=== PATIENT | female | born 1935 | race African-American/Black ===

== ENCOUNTER → 2016-10-25 | Outpatient (CLI) | payer MEDICARE ==
[2015-07-01 10:37] VITALS: BP 153/42
[~2016-10-25] MED LIST: AMLO5TAB2 PO; ASPI325T8 PO; CITA20TA9 PO; CLOP75TA57 PO; ERGO50002 PO; HYDR25TA PO; METO25TA4 PO; NEO/5DRO OU; PIOG30TA41 PO
== END | disposition home or self-care (01) ==
LOC: NM 13:26
PROVIDERS: ATTEND Family Medicine
DX: E11.65 Type 2 diabetes mellitus with hyperglycemia (principal); N39.0 Urinary tract infection, site not specified; R25.2 Cramp and spasm; D50.8 Other iron deficiency anemias; R79.1 Abnormal coagulation profile

== ENCOUNTER → 2016-12-22 | Day surgery (SDC) | payer MEDICARE ==
[2015-07-01 10:37] VITALS: BP 153/42
[~2016-12-22] MED LIST changes: +IV RINGERS SOLUTION,LACTATED 1,000 ML IV ONE; +LIDOCAINE 2% PF Vial for OR 5 ML VIAL. ONE; +PROPOFOL 40 ML IV ONE
== END | disposition home or self-care (01) ==
LOC: SURG 07:05
PROVIDERS: ATTEND Internal Medicine Gastroenterology
DX: D50.9 Iron deficiency anemia, unspecified (principal); K64.8 Other hemorrhoids; K57.30 Diverticulosis of large intestine without perforation or abscess without bleeding; K29.70 Gastritis, unspecified, without bleeding; K44.9 Diaphragmatic hernia without obstruction or gangrene
CPT/HCPCS: 43239; 45378; 82947; J2704; J7120; J2001

== ENCOUNTER → 2017-09-13 | Outpatient (CLI) | payer MEDICARE ==
[2015-07-01 10:37] VITALS: BP 153/42
[~2017-09-13] MED LIST changes: -IV RINGERS SOLUTION,LACTATED 1,000 ML IV ONE; -LIDOCAINE 2% PF Vial for OR 5 ML VIAL. ONE; -PROPOFOL 40 ML IV ONE
--- NOTE | 2017-09-13 12:31 | RAD ---
INDICATION: Claudication. TECHNIQUE: Grayscale, color-flow, and spectral waveform analysis was performed. Comparison is from June 10, 2014. FINDINGS: Right: There is an elevated velocity in the superficial femoral artery, mid to distally 525 cm/s. Waveforms are probably monophasic just above and below this level. No additional elevated velocity is identified. There is mild atheromatous plaquing throughout. Right common femoral artery peak systolic velocity is 177 cm/s and profundus 146 cm/s. Right popliteal artery peak systolic velocity is 42 cm/s. Left: Waveforms are biphasic throughout. There is mild atheromatous plaquing. There is no elevated velocity. Stenosis and collaterals noted previously on the left in the superficial femoral artery distally are no longer appreciated. Correlate with any intervention since prior exam. Left common femoral artery peak systolic velocity is 159 cm/s and profundus 166 cm/s. Left superficial femoral artery peak systolic velocities ranged from 50-120 cm/s. Popliteal artery peak systolic velocity is 57 cm/s. IMPRESSION: 1. Redemonstrated elevated velocity in the mid to distal right superficial femoral artery suggesting high-grade stenosis. 2. No significant stenosis apparent on the left. Narrowing and collaterals noted previously on the left are not appreciated on the current exam. Electronically signed by: Ted Green MD (09/13/2017 12:28 PM) [facility]
== END | disposition home or self-care (01) ==
LOC: US 09:28
PROVIDERS: ATTEND Family Medicine
DX: I70.293 Other atherosclerosis of native arteries of extremities, bilateral legs (principal); I10 Essential (primary) hypertension; E11.65 Type 2 diabetes mellitus with hyperglycemia; D50.9 Iron deficiency anemia, unspecified
CPT/HCPCS: 93925

== ENCOUNTER 2018-10-30 09:07 | Emergency (ER) | payer MEDICARE ==
[~2018-10-30] VITALS: Ht 152.4 cm; Wt 64.9 kg
[~2018-10-30 09:07] MED LIST changes: +AMLO5TAB10 PO; -AMLO5TAB2 PO
[2018-10-30] MEDS ORDERED: ACETAMINOPHEN 500 MG TABLET PO ONE (10:00)
--- NOTE | 2018-10-30 10:30 | RAD ---
Examination: CT head and cervical spine without contrast CT HEAD INDICATION: Fall, hit head COMPARISON: None Available. Exposure: One or more of the following individualized dose reduction techniques were utilized for this examination: 1. Automated exposure control 2. Adjustment of the mA and/or kV according to patient size 3. Use of iterative reconstruction technique TECHNIQUE: 5 mm contiguous axial images were obtained from the skull base to the vertex in both bone and soft tissue algorithm. FINDINGS: Mild Age-related cerebral atrophic changes. There is a small hypodensity identified in the left basal ganglia likely old lacunar infarct. No evidence of acute intracranial hemorrhage. No extra-axial fluid collections. No mass effect or midline shift. Ventricular size is appropriate. Basal cisterns are patent. No fractures identified.Torrez-white differentiation is preserved.Globes and orbits are within normal limits. Paranasal sinuses and mastoid air cells are clear. IMPRESSION: No acute intracranial findings. CT CERVICAL SPINE INDICATION: Fall, neck pain COMPARISON: None Available. Technique: 2.5 mm contiguous axial images were obtained from the skull base through the cervicothoracic junction in both bone and soft tissue algorithm. Additional sagittal and coronal reconstructions were also performed. FINDINGS: There is questionable minimal offset with questionable widening of the right C1-C2 articulation. 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 The vertebral body heights are maintained. The bilateral facets are well aligned. Moderate intervertebral disc height loss identified at C2-C3, C3-C4, C4-C5, C5-C6 and C6-C7 vertebral levels. Diffuse disc bulges identified throughout the cervical spine particularly at C3-C4 and C5-C6 vertebral level causing anterior thecal sac impression. No obvious acute fracture is evident. IMPRESSION: 1. Questionable minimal offset with widening of the right C1-C2 articulation. Rotary subluxation is not excluded. Recommend MRI for further evaluation. 2. Multilevel degenerative changes cervical spine. Electronically signed by: Douglas Andrews MD (10/30/2018 10:27 AM) [facility]
--- NOTE | 2018-10-30 11:03 | ED.ADGEN ---
Past History Past Medical History: Diabetes, Hypertension, [place] Past Surgical History: Other Alcohol Use: None Drug Use: None Adult General Chief Complaint Chief Complaint Patient is a 83-year-old female who presents with neck pain and headache after falling backwards while sitting in a chair 2 days ago. Patient states she lost balance and hit her head on the ground. She is currently on Plavix. Patient denies loss of consciousness. She initially reports headache which has since resolved, but does have persistent diffuse right posterior neck pain. Pain radiates to right shoulder and arm. Denies extremity weakness or loss of sensation. Denies chest pain back pain or any other injury or pain related complaint. No other acute symptoms. Patient drove by private vehicle to the ED. She has not sought medical evaluation or treatment for her neck pain prior to today's visit.Patient is a 83-year-old female who presents with neck pain and headache after falling backwards while sitting in a chair 2 days ago. Patient states she lost balance and hit her head on the ground. She is currently on Plavix. Patient denies loss of consciousness. She initially reports headache which has since resolved, but does have persistent diffuse right posterior neck pain. Pain radiates to right shoulder and arm. Denies extremity weakness or loss of sensation. Denies chest pain back pain or any other injury or pain related complaint. No other acute symptoms. Patient drove by private vehicle to the ED. She has not sought medical evaluation or treatment for her neck pain prior to today's visit. HPI HPI [] Review of Systems Review of Systems Review symptoms as per history of present illness. All other review symptoms are negative. All other systems were reviewed and found to be within normal limits, except as documented in this note. Current Medications Current Medications Current Medications Medications (Trade) Dose Ordered Sig/[facility] Start Time Stop Time Status Last Admin Dose Admin Acetaminophen (Tylenol) 1,000 mg 1X ONCE 10/30/18 10:00 10/30/18 10:01 DC 10/30/18 09:58 1,000 MG Allergies Allergies Allergies Coded Allergies Type Severity Reaction Last Updated Verified No Known Drug Allergies 10/30/18 No Physical Exam Physical Exam Constitutional: Well developed, well nourished, no acute distress, non-toxic appearance. [] HENT: Normocephalic, atraumatic, bilateral external ears normal, oropharynx moist, no oral exudates, nose normal. [] Eyes: PERRLA, EOMI, conjunctiva normal, no discharge. [] Neck: Normal range of motion, diffuse posterior neck pain, tenderness. No midline tenderness.. [] Cardiovascular:Heart rate regular rhythm, no murmur [] Lungs & Thorax: Bilateral breath sounds clear to auscultation [] Abdomen: Bowel sounds normal, soft, no tenderness. [] Neurologic: Alert and oriented X 3, normal motor function, normal sensory function, no focal deficits noted. [] Psychologic: Affect normal, judgement normal, mood normal. [] Current Patient Data Vital Signs Vital Signs Date Time Temp Pulse Resp B/P (MAP) Pulse Ox O2 Delivery O2 Flow Rate FiO2 10/30/18 09:12 98.2 76 16 99 Room Air EKG EKG [] Radiology/Procedures Radiology/Procedures [CT head/cervical spine: Findings suspicious of ligamentous injury per radiology report. Recommendations are for MRI.] Course & Med Decision Making Course & Med Decision Making Pertinent Labs and Imaging studies reviewed. (See chart for details) [Patient placed in soft collar. Dr. Kramer sales and service consultant for neurosurgery to see for surgical consult. Patient will be transferred to [facility] to obtain an MRI. Dr. Guevara to admit] Final Impression Final Impression [1. Traumatic neck pain 2. Cervical radiculopathy 3, abnormal CT cervical spine] Dragon Disclaimer Dragon Disclaimer This electronic medical record was generated, in whole or in part, using a voice recognition dictation system. JOSE JOHNSON DO Oct 30, 2018 11:03
[2018-10-30 12:11] LABS: BASO % 1 % (0-3); EOS % 1 % (0-3); HEMATOCRIT 21.6 % (36.0-47.0); LYMPH # 1.8 x10^3/uL (1.0-4.8); LYMPH % 39 % (24-48); MEAN CORPUSCULAR HEMOGLOBIN 17 pg (25-35); MEAN CORPUSCULAR HGB CONC 29 g/dL (31-37); MEAN CORPUSCULAR VOLUME 58 fL (79-100); MONO # 0.7 x10^3/uL (0.0-1.1); MONO % 14 % (0-9); NEUT # 2.1 x10^3uL (1.8-7.7); NEUT % 45 % (31-73); PLATELET COUNT 297 x10^3/uL (140-400); RED BLOOD COUNT 3.72 x10^6/uL (3.50-5.40); RED CELL DISTRIBUTION WIDTH 20.9 % (11.5-14.5); WHITE BLOOD COUNT 4.7 x10^3/uL (4.0-11.0)
[2018-10-30 12:13] LABS: HEMOGLOBIN 6.2 g/dL (12.0-15.5)
[2018-10-30 12:20] LABS: ALBUMIN 3.5 g/dL (3.4-5.0); ALBUMIN/GLOBULIN RATIO 0.9 (1.0-1.7); CALCIUM 8.7 mg/dL (8.5-10.1); CREATININE 0.8 mg/dL (0.6-1.0); GFR 83.3; TOTAL BILIRUBIN 0.4 mg/dL (0.2-1.0); TOTAL PROTEIN 7.5 g/dL (6.4-8.2)
[2018-10-30] MEDS ORDERED: IV NORMAL SALINE 1,000ML 1,000 ML IV ONE (12:30)
[2018-10-30] MEDS ORDERED: FAMOTIDINE 20 MG/2 ML VIAL IVP ONE (12:45)
[2018-10-30 12:53] LABS: % BANDS 1 % (0-9); % BASOS 0 % (0-3); % EOS 1 % (0-5); % LYMPHS 43 % (24-48); % MONOS 6 % (0-10); % SEGS 49 % (35-66); PLT ESTIMATE ADEQUATE (ADEQUATE)
[2018-10-30 12:54] LABS: ANISOCYTOSIS MOD; HYPOCHROMIA MARKED; MICROCYTOSIS MOD; OVALOCYTES OCC; POLYCHROMASIA PRESENT; TARGET CELLS OCC; TEAR DROP CELLS PRESENT
[2018-10-30 13:05] LABS: FECAL OB PT NEGATIVE (NEG)
[2018-10-30 13:45] VITALS: BP 156/80
== END 2018-10-30 14:45 | disposition short-term general hospital (02) ==
LOC: ER 09:07
DX: M54.2 Cervicalgia (principal); M54.12 Radiculopathy, cervical region; R93.89 Abnormal findings on diagnostic imaging of other specified body structures; R42 Dizziness and giddiness; E11.9 Type 2 diabetes mellitus without complications; I10 Essential (primary) hypertension; I25.2 Old myocardial infarction
CPT/HCPCS: 36415; 70450; 72125; 80053; 82274; 85007; 85025; 85610; 85730; 96360; 96361; 99285-25; J7030

== ENCOUNTER → 2019-05-02 | Outpatient (CLI) | payer MEDICARE ==
[2019-05-02 11:52] LABS: BASO # 0.1 x10^3/uL (0.0-0.2); BASO % 1 % (0-3); EOS # 0.1 x10^3/uL (0.0-0.7); EOS % 2 % (0-3); HEMATOCRIT 41.7 % (36.0-47.0); HEMOGLOBIN 13.4 g/dL (12.0-15.5); LYMPH # 1.2 x10^3/uL (1.0-4.8); LYMPH % 26 % (24-48); MEAN CORPUSCULAR HEMOGLOBIN 28 pg (25-35); MEAN CORPUSCULAR HGB CONC 32 g/dL (31-37); MEAN CORPUSCULAR VOLUME 86 fL (79-100); MONO # 0.6 x10^3/uL (0.0-1.1); MONO % 13 % (0-9); NEUT # 2.7 x10^3uL (1.8-7.7); NEUT % 57 % (31-73); PLATELET COUNT 182 x10^3/uL (140-400); RED BLOOD COUNT 4.85 x10^6/uL (3.50-5.40); RED CELL DISTRIBUTION WIDTH 15.5 % (11.5-14.5); WHITE BLOOD COUNT 4.7 x10^3/uL (4.0-11.0)
[2019-05-02 11:58] LABS: ALBUMIN 3.5 g/dL (3.4-5.0); ALBUMIN/GLOBULIN RATIO 0.9 (1.0-1.7); CALCIUM 8.9 mg/dL (8.5-10.1); CREATININE 0.7 mg/dL (0.6-1.0); GFR 97.2; POTASSIUM 3.8 mmol/L (3.5-5.1); TOTAL BILIRUBIN 0.2 mg/dL (0.2-1.0); TOTAL PROTEIN 7.4 g/dL (6.4-8.2)
== END | disposition home or self-care (01) ==
LOC: LAB 10:17
PROVIDERS: ATTEND Family Medicine
DX: D50.9 Iron deficiency anemia, unspecified (principal)
CPT/HCPCS: 36415; 80053; 83540; 83550; 85025

== ENCOUNTER → 2019-11-01 | Outpatient (CLI) | payer MEDICARE ==
--- NOTE | 2019-11-05 09:36 | RAD ---
DATE: 11/01/2019 8:53 AM EXAM: MAMMO HERMAN SCREENING BILATERAL HISTORY: Screening . New baseline. COMPARISON: None available. This will serve as a new baseline. Bilateral CC and MLO views of the breasts were performed. Bilateral breast tomosynthesis was performed in CC and MLO projections. This study was interpreted with the benefit of Computerized Aided Detection (CAD). FINDINGS: Breast Density: HETERO The breast parenchyma Is heterogeneously dense, which could reduce sensitivity of mammography. Breast parenchyma level C No suspicious masses, microcalcifications or architectural distortion is present to suggest malignancy in either breast. The visualized axillae are unremarkable. IMPRESSION: No mammographic evidence of malignancy. BI-RADS CATEGORY: 1 NEGATIVE RECOMMENDED FOLLOW-UP: 12M 12 MONTH FOLLOW-UP Annual screening mammography is recommended, unless clinically indicated sooner based on symptoms or change in physical exam. PQRS compliance statement: Patient information was entered into a reminder system with a target due date for the next mammogram. Mammography is a sensitive method for finding small breast cancers, but it does not detect them all and is not a substitute for careful clinical examination. A negative mammogram does not negate a clinically suspicious finding and should not result in delay in biopsying a clinically suspicious abnormality. "Our facility is accredited by the [employer] Mammography Program."
== END | disposition home or self-care (01) ==
LOC: MAMMO 08:38
PROVIDERS: ATTEND Family Medicine
DX: Z12.31 Encounter for screening mammogram for malignant neoplasm of breast (principal)
CPT/HCPCS: 77063; 77067

== ENCOUNTER 2020-05-29 22:59 | Emergency (ER) | payer MEDICARE ==
[~2020-05-29] VITALS: Ht 152.4 cm; Wt 68.2 kg
[~2020-05-29 22:59] MED LIST changes: +AMLO-186 PO; -AMLO5TAB10 PO
[2020-05-29 23:17] VITALS: BP 162/84
--- NOTE | 2020-05-29 23:20 | PHYS DOC ---
Past History Past Medical History: Arthritis, Diabetes, Hypertension, [place], UTI Past Medical History Radial fx Lt. Past Surgical History: Other Alcohol Use: None Drug Use: None General Adult EDM: Chief Complaint: BACK PAIN OR INJURY HPI: HPI: " I been tiny feeling bad since yesterday... started hurting tonight.. here on Lt... " Patient is a 84 year old female who presents with above hx with complaints malaise, dysuria, and now left flank pain. Patient also complaining of continued pain in left wrist since a fall last month. Has a very swollen wrist.. Told for the wear a splint but has not been wearing it because of the jewelry gave her... 20 years go.. Patient denies any recent travel. No specific ill contacts. No history immunosuppression. Has had urinary tract infections before. Has had renal stones previously. Wrist area on the left is still swollen hand on the left is still swollen. Jewelry removed with soap and water. Distal neurovascular appears to be intact. Capillary refill is equal to right hand. Patient is right-hand dominant. Localized pain to the distal radius. Patient normally follows with Dr. Spencer. Review of Systems: Review of Systems: Constitutional: Denies fever or chills. Complains of malaise Eyes: Denies change in visual acuity HENT: Denies nasal congestion or sore throat Respiratory: Denies cough or shortness of breath Cardiovascular: Denies chest pain or edema GI: Denies abdominal pain, nausea, vomiting, bloody stools or diarrhea : Complains of dysuria Musculoskeletal: Denies back pain or joint pain. Complains left wrist pain injured over a month ago Integument: Denies rash Neurologic: Denies headache, focal weakness or sensory changes Endocrine: Denies polyuria or polydipsia Lymphatic: Denies swollen glands Psychiatric: Denies depression or anxiety Family History: Family History: Noncontributory to presentation Current Medications: Current Meds: See nursing for home meds Allergies: Allergies: Allergies Coded Allergies Type Severity Reaction Last Updated Verified No Known Drug Allergies 10/30/18 No Physical Exam: PE: Constitutional: Moderate acute distress, non-toxic appearance. [] HENT: Normocephalic, atraumatic, bilateral external ears normal, oropharynx moist, no oral exudates, nose normal. [] Eyes: PERRLA, EOMI, conjunctiva normal, no discharge. [] Neck: Normal range of motion, no tenderness, supple, no stridor. [] Cardiovascular:Heart rate regular rhythm, no murmur [] Lungs & Thorax: Bilateral breath sounds equal at apex auscultation [] Abdomen: Bowel sounds normal, soft, generalized tenderness, no masses, no pulsatile masses. [Distended. Skin: Warm, dry, no erythema, no rash. [] Back: No tenderness, no CVA tenderness. [] Extremities: No tenderness, no cyanosis, no clubbing, ROM intact, no edema. [] Neurologic: Alert and oriented X 3, normal motor function, normal sensory function, no focal deficits noted. [] Psychologic: Affect normal, judgement normal, mood normal. [] EKG: EKG: My interpretation EKG shows sinus bradycardia at 68 bpm. No findings acute STEMI of contralateral changes [] Radiology/Procedures: Radiology/Procedures: [[place] [address] IMAGING REPORT Signed PATIENT: JOVANNI SANCHES MACCOUNT: [id number] : 1935 LOCATION: ER AGE: 84 SEX: F EXAM STATUS: REG ER ORD. PHYSICIAN: KEATON CHAIREZ MD REASON: pain PROCEDURE: ACUTE ABDOMEN SERIES ACUTE ABDOMEN SERIES History: Pain. Comparison: None. Findings: Frontal chest and supine and upright views of the abdomen. Atherosclerotic aortic arch. Cardiomediastinal silhouette is normal. There is no pleural effusion or pneumothorax. The lungs are clear. No pneumoperitoneum is identified. No dilated air-filled loops of bowel are seen. Bowel gas pattern is nonobstructive. No obvious organomegaly. Degenerative endplate spurring of the lumbar spine. Scattered stool in the colon. Arterial calcifications are seen. There is a 12 mm right renal calculus. IMPRESSION: 1. No acute cardiopulmonary process. 2. Nonobstructive bowel gas pattern. 3. Large right renal calculus. Electronically signed by: Ken Parker MD (05/30/2020 1:06 AM) [facility] DICTATED AND SIGNED BY: KEN PARKER MD DATE: 05/30/20103 CC: TAMIKO SPENCER MD; KEATON CHAIREZ MD ~MTH0 [address] [address] IMAGING REPORT Signed PATIENT: JOVANNI SANCHESCOUNT: [id number] : 1935 LOCATION: ER AGE: 84 SEX: F EXAM STATUS: REG ER ORD. PHYSICIAN: KEATON CHAIREZ MD REASON: fall , still swollen PROCEDURE: WRIST 3V LEFT XR LT WRIST 3VIEWS, XR FOREARM_LEFT 2 VIEWS Clinical Indication: Reason: fall , still swollen / Spl. Instructions: / History: Comparison: None. Findings: There is acute traumatic transverse fracture of the distal radial metadiaphysis. The fracture is essentially nondisplaced. There is a longitudinal fracture line with intra-articular extension. No acute fracture of the distal ulna is seen. There is soft tissue swelling dorsally of the wrist. There is arthropathy of the first CMC and the first MCP. The carpal bones are intact. There is diffuse demineralization. There is no acute fracture of the more proximal radius or ulna. No elbow joint effusion is seen. There is no elbow dislocation. IMPRESSION: 1. Acute traumatic fracture of the distal radius with intra-articular extension. 2. No acute fracture of the forearm. Electronically signed by: Ken Parker MD (05/30/2020 1:08 AM) [facility] DICTATED AND SIGNED BY: KEN PARKER MD DATE: 05/30/20105 CC: TAMIKO SPENCER MD; KEATON CHAIREZ MD ~MTH0 0 ][address] [address] IMAGING REPORT Signed PATIENT: JOVANNI SANCHESCOUNT: [id number] : 1935 LOCATION: ER AGE: 84 SEX: F EXAM STATUS: REG ER ORD. PHYSICIAN: KEATON CHAIREZ MD REASON: pain Lt. flank and abd. PROCEDURE: CT ABDOMEN PELVIS WO CONTRAST PQRS Compliance Statement: One or more of the following individualized dose reduction techniques were utilized for this examination: 1. Automated exposure control 2. Adjustment of the mA and/or kV according to patient size 3. Use of iterative reconstruction technique CT ABDOMEN+PELVIS WO Clinical Indication: Reason: pain Lt. flank and abd. Comparison: None. Technique: Helical CT imaging of the abdomen and pelvis is performed without IV or oral contrast. Findings: Evaluation of solid organs and bowel is limited without oral and IV contrast, decreasing sensitivity for detection of pathology. There is minimal atelectasis or scarring in the right lower lobe posteriorly. There is coronary artery disease. Cardiac size normal. Tiny hiatal hernia. The liver, gallbladder, spleen, pancreas, and adrenal glands are normal. There is severe atherosclerotic calcification of the abdominal aorta and iliac arteries, no aneurysm. There is a calculus in the right renal pelvis measuring 1.5 x 0.9 cm. There is no right hydronephrosis. There is no ureteral calculus. There is no left hydronephrosis. No obvious abnormality of the stomach. There is no small bowel obstruction. There is distal colon diverticulosis. There is diverticulosis of the proximal colon. The appendix is normal. No colon wall thickening is identified. Urinary bladder is mostly decompressed, otherwise normal. Uterus and ovaries unremarkable. No pelvic free fluid is seen. No acute bone abnormality. IMPRESSION: 1. No left obstructive uropathy. 2. There is a large calculus in the right renal pelvis. There is no appreciable hydronephrosis. 3. Moderate colon diverticulosis. 4. Tiny hiatal hernia. Electronically signed by: Ken Parker MD (05/30/2020 12:49 AM) [facility] DICTATED AND SIGNED BY: KEN PARKER MD DATE: 05/30/20 003 CC: TAMIKO SPENCER MD; KEATON CHAIREZ MD ~MTH0 0 Heart Score: C/O Chest Pain: N/A HEART Score for Chest Pain: HEART Score for Chest Pain Response (Comments) Value History Slighlty/Non-Suspicious 0 ECG Normal 0 Age > 65 2 Risk Factors 1 or 2 Risk Factors 1 Troponin < Normal Limit 0 Total 3 Risk Factors: Risk Factors: DM, Current or recent (<one month) smoker, HTN, HLP, family history of CAD, obesity. Risk Scores: Score 0 - 3: 2.5% MACE over next 6 weeks - Discharge Home Score 4 - 6: 20.3% MACE over next 6 weeks - Admit for Clinical Observation Score 7 - 10: 72.7% MACE over next 6 weeks - Early Invasive Strategies Course & Med Decision Making: Course & Med Decision Making Pertinent Labs and Imaging studies reviewed. (See chart for details) Wrist splint replaced on left wrist-spica splint distal neurovascular intact after application. Patient keep arm elevated patient to only remove after 2 weeks may loosen wrap as needed. Patient to follow-up with Dr. Pederson. Patient had repeat x-ray in 2 weeks to make sure callus is forming. Patient to start Keflex 500 mg 3 times a day. Patient to expect some loose stools with milk of mag tonight. Patient follow-up with Dr. Spencer. Patient return if any concerns. Clear fluid diet for 24 to 48 hours. No solids or milk products. Return if any concerns. Impression: 1. Abdomen pain 2. Constipation 3. Urinary tract infection 4. Left radial fracture through articulating surface. 5. Diabetes= glucose 142. [] Dragon Disclaimer: Dragon Disclaimer: This electronic medical record was generated, in whole or in part, using a voice recognition dictation system. Departure Departure: Referrals: TAMIKO SPENCER MD (PCP) Scripts Cephalexin (KEFLEX) 750 Mg Capsule 500 MG PO TID for UTI, #30 CAP Prov: KEATON CHAIREZ MD 05/30/20 Dragon Disclaimer This chart was dictated in whole or in part using Voice Recognition software in a busy, high-work load, and often noisy Emergency Department environment. It may contain unintended and wholly unrecognized errors or omissions. KEATON CHAIREZ MD May 29, 2020 23:20
[2020-05-29] MEDS ORDERED: ONDANSETRON PF 4 MG/2 ML VIAL. IVP ONE (23:30)
[2020-05-29] MEDS ORDERED: KETOROLAC 30 MG/ML VIAL. IVP ONE (23:30)
[2020-05-29] MEDS ORDERED: IV RINGERS SOLUTION,LACTATED 1,000 ML IV SCH (23:30)
[2020-05-29] MEDS ORDERED: FAMOTIDINE 20 MG/2 ML VIAL IVP ONE (23:30)
[2020-05-29 23:48] LABS: BILIRUBIN,URINE NEG (NEG); CLARITY,URINE HAZY; COLOR,URINE YELLOW; GLUCOSE,URINE NEG (NEG); NITRITE,URINE POS (NEG)
[2020-05-29 23:49] LABS: BACTERIA,URINE MANY /HPF (0-FEW); SQUAMOUS EPITHELIAL CELL,UR FEW /LPF
[2020-05-30 00:12] LABS: BASO % 1 % (0-3); EOS # 0.1 x10^3/uL (0.0-0.7); EOS % 2 % (0-3); HEMATOCRIT 41.2 % (36.0-47.0); HEMOGLOBIN 13.3 g/dL (12.0-15.5); LYMPH % 16 % (24-48); MEAN CORPUSCULAR HEMOGLOBIN 27 pg (25-35); MEAN CORPUSCULAR HGB CONC 32 g/dL (31-37); MEAN CORPUSCULAR VOLUME 85 fL (79-100); MONO # 0.8 x10^3/uL (0.0-1.1); MONO % 14 % (0-9); NEUT # 3.9 x10^3uL (1.8-7.7); NEUT % 67 % (31-73); PLATELET COUNT 250 x10^3/uL (140-400); RED BLOOD COUNT 4.86 x10^6/uL (3.50-5.40); RED CELL DISTRIBUTION WIDTH 14.2 % (11.5-14.5); WHITE BLOOD COUNT 5.8 x10^3/uL (4.0-11.0)
[2020-05-30] MEDS ORDERED: cefTRIAXone SODIUM 1 GM VIAL ONE (00:28)
[2020-05-30] MEDS ORDERED: IV NORMAL SALINE 50ML 50 ML ONE (00:28)
--- NOTE | 2020-05-30 00:51 | RAD ---
PQRS Compliance Statement: One or more of the following individualized dose reduction techniques were utilized for this examinat ion: 1. Automated exposure control 2. Adjustment of the mA and/or kV according to patient size 3. Use of iterative reconstruction technique CT ABDOMEN+PELVIS WO Clinical Indication: Reason: pain Lt. flank and abd. Comparison: None. Technique: Helical CT imaging of the abdomen and pelvis is performed without IV or oral contrast. Findings: Evaluation of solid organs and bowel is limited without oral and IV contrast, decreasing sensitivity for detection of pathology. There is minimal atelectasis or scarring in the right lower lobe posteriorly. There is coronary arter y disease. Cardiac size normal. Tiny hiatal hernia. The liver, gallbladder, spleen, pancreas, and adrenal glands are normal. There is severe atherosclero tic calcification of the abdominal aorta and iliac arteries, no aneurysm. There is a calculus in the right renal pelvis measuring 1.5 x 0.9 cm. There is no right hydronephrosis. There is no ureteral chandler culus. There is no left hydronephrosis. No obvious abnormality of the stomach. There is no small bowel obstruction. There is distal colon div erticulosis. There is diverticulosis of the proximal colon. The appendix is normal. No colon wall thi ckening is identified. Urinary bladder is mostly decompressed, otherwise normal. Uterus and ovaries unremarkable. No pelvic free fluid is seen. No acute bone abnormality. IMPRESSION: 1. No left obstructive uropathy. 2. There is a large calculus in the right renal pelvis. There is no appreciable hydronephrosis. 3. Moderate colon diverticulosis. 4. Tiny hiatal hernia. Electronically signed by: Ken Parker MD (05/30/2020 12:49 AM) [facility]
--- NOTE | 2020-05-30 01:08 | RAD ---
ACUTE ABDOMEN SERIES History: Pain. Comparison: None. Findings: Frontal chest and supine and upright views of the abdomen. Atherosclerotic aortic arch. Cardiomediastinal silhouette is normal. There is no pleural effusion or pneumothorax. The lungs are clear. No pneumoperitoneum is identified. No dilated air-filled loops of bowel are seen. Bowel gas pattern i s nonobstructive. No obvious organomegaly. Degenerative endplate spurring of the lumbar spine. Scattered stool in the c olon. Arterial calcifications are seen. There is a 12 mm right renal calculus. IMPRESSION: 1. No acute cardiopulmonary process. 2. Nonobstructive bowel gas pattern. 3. Large right renal calculus. Electronically signed by: Ken Parker MD (05/30/2020 1:06 AM) [facility]
--- NOTE | 2020-05-30 01:11 | RAD ---
XR LT WRIST 3VIEWS, XR FOREARM_LEFT 2 VIEWS Clinical Indication: Reason: fall , still swollen / Spl. Instructions: / History: Comparison: None. Findings: There is acute traumatic transverse fracture of the distal radial metadiaphysis. The fracture is esse ntially nondisplaced. There is a longitudinal fracture line with intra-articular extension. No acute fracture of the distal ulna is seen. There is soft tissue swelling dorsally of the wrist. There is ar thropathy of the first CMC and the first MCP. The carpal bones are intact. There is diffuse demineral ization. There is no acute fracture of the more proximal radius or ulna. No elbow joint effusion is seen. Ther e is no elbow dislocation. IMPRESSION: 1. Acute traumatic fracture of the distal radius with intra-articular extension. 2. No acute fracture of the forearm. Electronically signed by: Ken Parker MD (05/30/2020 1:08 AM) [facility]
[2020-05-30 01:23] LABS: CREATININE 0.8 mg/dL (0.6-1.0); GFR 83.1
[2020-05-30 01:29] LABS: ALBUMIN 3.2 g/dL (3.4-5.0); DIRECT BILIRUBIN 0.1 mg/dL (0.0-0.2); TOTAL BILIRUBIN 0.2 mg/dL (0.2-1.0); TOTAL PROTEIN 7.4 g/dL (6.4-8.2)
[2020-05-30] MEDS ORDERED: CEPH750C9 PO (01:55)
[2020-05-30] MEDS ORDERED: MAGNESIUM HYDROXIDE 2,400 MG/30 ML ORAL.SUSP. PO ONE (02:00)
--- NOTE | 2020-05-30 02:08 | EKG ---
[address] [address] Test Date: 2020-05-30 Test Time: 00:35:54 Pat Name: JOVANNI SANCHES Department: Room: Gender: F Maintenance Service Supervisor: : 1935 Requested By: KEATON CHAIREZ Order Number: [id number] Reading MD: Measurements Intervals [place] Rate: 58 P: 46 OK: 174 QRS: 33 QRSD: 78 T: 11 QT: 454 QTc: 450 Interpretive Statements SINUS RHYTHM NO SPECIFIC ECG ABNORMALITIES RI6.02 No previous ECG available for comparison
== END 2020-05-30 02:32 | disposition home or self-care (01) ==
LOC: ER 22:59
DX: S52.502A Unspecified fracture of the lower end of left radius, initial encounter for closed fracture (principal); N39.0 Urinary tract infection, site not specified; K59.00 Constipation, unspecified; E11.9 Type 2 diabetes mellitus without complications; M79.632 Pain in left forearm; I10 Essential (primary) hypertension; I25.2 Old myocardial infarction; W18.39XA Other fall on same level, initial encounter; Y93.89 Activity, other specified; Y92.89 Other specified places as the place of occurrence of the external cause; Y99.8 Other external cause status
CPT/HCPCS: 29125; 36415; 73090; 73110; 74022; 74176; 80048; 80076; 81001; 82150; 82550; 83690; 84484; 85025; 85610; 85730; 87077; 87086; 87186; 93005; 96361; 96374; 96375; 99285; J0696; J1885; J2405; J3490; J7120

== ENCOUNTER 2020-05-31 11:45 | Emergency (ER) | payer MEDICARE ==
[~2020-05-31] VITALS: Ht 152.4 cm; Wt 68.2 kg
[~2020-05-31 11:45] MED LIST changes: +CEPH750C9 PO
[2020-05-31 11:59] VITALS: BP 139/68
--- NOTE | 2020-05-31 12:14 | PHYS DOC ---
Past History Past Medical History: Arthritis, Diabetes, Hypertension, [place], UTI Past Surgical History: Other Additional Past Surgical Histo: CARDIAC STENTS Alcohol Use: None Drug Use: None Adult General Chief Complaint Chief Complaint: CAST CHECK HPI HPI Patient is a 84-year-old female presenting for left cast problem. She was seen here 2 days ago, at that time was diagnosed with distal radial head fracture and was placed in an immobilizing splint/cast. Nonetheless, she has developed edema to distal portions of her fingers. She remains neurovascularly intact with good cap refill; however, the swelling in her knuckles and fingers concerned her and family members prompting her to come in for evaluation. Of note, she was also diagnosed with a UTI. She has not started the medication yet, she just picked up the Keflex today. Otherwise; patient has been at baseline health. Pain has been well controlled with previously prescribed medications Review of Systems Review of Systems Fourteen body systems of review of systems have been reviewed. See HPI for pertinent positives and negative responses, other hollis all other systems are negative, non-pertinent or non-contributory Allergies Allergies Allergies Coded Allergies Type Severity Reaction Last Updated Verified No Known Drug Allergies 10/30/18 No Physical Exam Physical Exam Constitutional: Well developed, well nourished, no acute distress, non-toxic appearance. HENT: Normocephalic, atraumatic, bilateral external ears normal, oropharynx moist, no oral exudates, nose normal. Eyes: PERRLA, EOMI, conjunctiva normal, no discharge. Neck: Normal range of motion, no tenderness, supple, no stridor. Cardiovascular: Heart rate regular per monitor Lungs & Thorax: No respiratory distress or accessory muscle use, bilateral chest rise Abdomen: Abdomen soft, non-tender, bowel sounds present in all quadrants, no guarding or rebound, nonacute abdomen. Skin: Warm, dry, no erythema, no rash. Back: No tenderness, no CVA tenderness. Extremities: No cyanosis, no clubbing, ROM intact. Dependent edema noted to distal portion of left upper extremity involving all knuckles and fingers distal to splint site, neurovascularly intact, cap refill less than 3 seconds all digits Neurologic: Alert and oriented X 3, normal motor & sensory function, no focal deficits noted. Psychologic: Affect normal, judgement normal, mood normal. EKG EKG [] Radiology/Procedures Radiology/Procedures [] Heart Score C/O Chest Pain: No Risk Factors: Risk Factors: DM, Current or recent (<one month) smoker, HTN, HLP, family history of CAD, obesity. Risk Scores: Risk Factors: DM, Current or recent (<one month) smoker, HTN, HLP, family history of CAD, obesity. Course & Med Decision Making Course & Med Decision Making Hemodynamically stable patient presenting for cast problems. HPI and physical exam grossly nonconcerning. Cast was removed, arm was elevated for greater than 15 minutes and cast was subsequently reapplied with adequate positioning but much looser to decrease chance of recurrent edema. Patient has good access to care, has previously scheduled primary care follow-up this upcoming week for repeat evaluation of her numerous conditions which I feel is appropriate. No big changes in management required today. Continued supportive care advised with instructions to take previously prescribed antibiotics to completion as prescribed. Strict return precautions discussed with good understanding by patient and daughter who is also at bedside, all questions and concerns addressed prior to ER departure Dragon Disclaimer Dragon Disclaimer This electronic medical record was generated, in whole or in part, using a voice recognition dictation system. Departure Departure: Impression: Primary Impression: Problem with immobilizing cast Disposition: 01 DC HOME SELF CARE/HOMELESS Condition: STABLE Referrals: TAMIKO SPENCER MD (PCP) Additional Instructions: As discussed prior to ER departure, you were likely suffering from dependent edema otherwise known as fluid buildup to the end of your arm from a cast that was applied too tightly. This was relieved today. You were neurovascularly intact, there is no indication for further diagnostic studies or other work-up in ER setting. As previously advised, please take your antibiotics as previously scheduled to completion. Please keep your previously scheduled follow-up with primary care physician later this week. If any concerning signs or symptoms present prior to that outpatient follow-up please do not hesitate to come back for repeat evaluation. It was a pleasure to take care of you and I wish you a speedy recovery GIGI WYNEN DO May 31, 2020 12:14
== END 2020-05-31 12:40 | disposition home or self-care (01) ==
LOC: ER 11:45
DX: Z47.89 Encounter for other orthopedic aftercare (principal); R60.0 Localized edema; M19.90 Unspecified osteoarthritis, unspecified site; E11.9 Type 2 diabetes mellitus without complications; I10 Essential (primary) hypertension; I25.2 Old myocardial infarction; Z87.440 Personal history of urinary (tract) infections
CPT/HCPCS: 99283

== ENCOUNTER 2021-05-10 10:02 | Emergency (ER) | payer MEDICARE ==
[~2021-05-10] VITALS: Ht 152.4 cm; Wt 68.1 kg
[2021-05-10 10:30] VITALS: BP 182/85
--- NOTE | 2021-05-10 10:41 | PHYS DOC ---
Past History Past Medical History: Arthritis, Diabetes, Hypertension, [place], UTI Past Surgical History: No Surgical History Additional Past Surgical Histo: CARDIAC STENTS Alcohol Use: None Drug Use: None General Adult EDM: Chief Complaint: LOWER EXTREMITY EDEMA HPI: HPI: Patient is an 85-year-old female who presents to the emergency department today for left thigh and hip pain that has been intermittent for the last 3 months. Patient describes the pain as a muscle spasm. Is worse with bearing weight. Patient was seen at her primary care provider's office, Dr. Pederson and had negative x-ray and she had an injection and was discharged home with pain medication but she is unsure of what the medication was called. Patient reports that she fell in April. She denies any redness or warmth to her skin, fevers, shortness of breath, chest pain, DVT history. Patient has a history of lung cancer has been in remission after radiation treatments since August 2020, cardiac stent and is on Plavix, hyperlipidemia, diabetes and hypertension. Review of Systems: Review of Systems: Constitutional: See HPI Respiratory: See HPI Cardiovascular: HPI Musculoskeletal: See HPI Integument: See HPI Current Medications: Current Meds: Current Medications Medications (Trade) Dose Ordered Sig/Marv Start Time Stop Time Status Last Admin Dose Admin Orphenadrine Citrate (Norflex) 60 mg 1X ONCE 05/10/21 10:45 05/10/21 10:46 UNV Allergies: Allergies: Allergies Uncoded Allergies Type Severity Reaction Last Updated Verified STATINS Allergy Unknown 05/10/21 Physical Exam: PE: Constitutional: Well developed, well nourished, no acute distress, non-toxic appearance. [] HENT: Normocephalic, atraumatic, bilateral external ears normal, oropharynx moist, no oral exudates, nose normal. [] Eyes: PERRL, EOMI, conjunctiva normal, no discharge. [] Neck: Normal range of motion, no tenderness, supple, no stridor. [] Cardiovascular:Heart rate regular rhythm, no murmur [] Lungs & Thorax: Bilateral breath sounds clear to auscultation [] Abdomen: soft, no tenderness, no masses, no pulsatile masses. [] Skin: Warm, dry, no erythema, no rash. [] Back: No tenderness, normal ROM Extremities: No tenderness, no cyanosis, no clubbing, ROM intact, no edema. [] LLE: pain with palpation to lateral aspect of thigh and anterior aspect of upper thigh/hip along quadriceps muscle, ROM intact, Neuro intact, no obvious deformity, no pain with palpation of hips/pelvis, no shortening or rotation, no wounds, no erythema/swelling/warmth noted. Neurologic: Alert and oriented X 3, normal motor function, normal sensory function, no focal deficits noted. [] Psychologic: Affect normal, judgement normal, mood normal. [] Current Patient Data: Vital Signs: Vital Signs Date Time Temp Pulse Resp B/P (MAP) Pulse Ox O2 Delivery O2 Flow Rate FiO2 05/10/21 10:30 98.8 69 20 182/85 (117) 100 Room Air EKG: EKG: [] Radiology/Procedures: Radiology/Procedures: []PROCEDURE: CT LOWER EXTREMITY WO LEFT EXAMINATION: CT LOWER LEFT EXTREMITY WITHOUT CONTRAST, 05/10/2021 10:37 AM CLINICAL INDICATION: Thigh/hip pain, negative x-rays. COMPARISON: CT abdomen pelvis 05/29/2020 TECHNIQUE: Helical CT imaging performed of the left hip without the use of intravenous contrast. Sagittal and coronal reformats were obtained. One or more of the following individualized dose reduction techniques were utilized for this examination: 1. Automated exposure control 2. Adjustment of the mA and/or kV according to patient size 3. Use of iterative reconstruction technique. FINDINGS: There is no acute fracture. Alignment is normal. There is mild bilateral hip joint space narrowing with tiny acetabular osteophytes. Unchanged 4 mm sclerotic focus in the proximal right femur, nonspecific but likely a bone island. 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 Lower lumbar facet arthrosis is noted. Small disc bulge at L5-S1 with mild bilateral foraminal narrowing. Soft tissue is unremarkable. Moderate aortoiliac calcified atherosclerosis. Uterus is present and prominent for age, likely due to underlying fibroids, unchanged. IMPRESSION: 1. No acute osseous abnormality. 2. Mild degenerative joint disease. 3. Prominent appearing uterus suggesting underlying fibroids, unchanged. Electronically signed by: Lore Ware MD (05/10/2021 11:49 AM) [facility] DICTATED AND SIGNED BY: LORE WARE MD DATE: 05/10/21 [id number] CC: TAMIKO SPENCER MD; CALLIE GUAJARDO PSYCHOLOGICAL STRESS EVALUATOR ~MTH0 0 Heart Score: C/O Chest Pain: No Risk Factors: Risk Factors: DM, Current or recent (<one month) smoker, HTN, HLP, family history of CAD, obesity. Risk Scores: Score 0 - 3: 2.5% MACE over next 6 weeks - Discharge Home Score 4 - 6: 20.3% MACE over next 6 weeks - Admit for Clinical Observation Score 7 - 10: 72.7% MACE over next 6 weeks - Early Invasive Strategies Course & Med Decision Making: Course & Med Decision Making Pertinent Labs and Imaging studies reviewed. (See chart for details) Patient presents to the emergency department with left thigh and hip pain has been intermittent for 3 months. Patient had negative x-rays performed at Dr. Pederson's office on Monday and she was given a injection and discharged home with pain medication. Patient denies any new injuries. Upon physical assessment, she does not have any redness/warmth/swelling to her extremity, has no complaints of shortness of breath or chest pain. Patient's Wells score is 0. Patient has a history of lung cancer but has been in remission since August 2020 after receiving radiation. Patient is also currently on Plavix. Work-up in the ER consisted of CT imaging of left lower extremity and she was treated with a muscle relaxer as she states it feels like a muscle spasm. Imaging shows no acute findings but degenerative changes. Patient is able to bear weight. She is neurovascularly intact. Patient advised to follow-up with Dr. Pederson and continue take medications that he has prescribed for her. I discussed with patient all findings and diagnostic testing as well as the need to follow-up with PCP for further evaluation and treatment or return to the ER if any new or worsening symptoms. Strict return precautions were also discussed at length. Patient voiced understanding and agreement with the plan. Patient is hemodynamically stable at the time of disposition. Dragon Disclaimer: Dragon Disclaimer: This electronic medical record was generated, in whole or in part, using a voice recognition dictation system. Departure Departure: Impression: Primary Impression: Leg pain Qualified Codes: M79.605 - Pain in left leg Disposition: HOME / SELF CARE / HOMELESS Condition: GOOD Referrals: TAMIKO SPENCER MD (PCP) Patient Instructions: Hip Pain CALLIE GUAJARDO APRN May 10, 2021 10:41
[2021-05-10] MEDS ORDERED: ORPHENADRINE CITRATE 60 MG/2 ML VIAL. IM ONE (10:45)
--- NOTE | 2021-05-10 11:51 | RAD ---
EXAMINATION: CT LOWER LEFT EXTREMITY WITHOUT CONTRAST, 05/10/2021 10:37 AM CLINICAL INDICATION: Thigh/hip pain, negative x-rays. COMPARISON: CT abdomen pelvis 05/29/2020 TECHNIQUE: Helical CT imaging performed of the left hip without the use of intravenous contrast. Sagi ttal and coronal reformats were obtained. One or more of the following individualized dose reduction techniques were utilized for this examinat ion: 1. Automated exposure control 2. Adjustment of the mA and/or kV according to patient size 3. Use of iterative reconstruction technique. FINDINGS: There is no acute fracture. Alignment is normal. There is mild bilateral hip joint space na rrowing with tiny acetabular osteophytes. Unchanged 4 mm sclerotic focus in the proximal right femur, nonspecific but likely a bone island. There is degenerative joint disease of the sacroiliac joints a nd pubic symphysis. Lower lumbar facet arthrosis is noted. Small disc bulge at L5-S1 with mild bilate ral foraminal narrowing. Soft tissue is unremarkable. Moderate aortoiliac calcified atherosclerosis. Uterus is present and prominent for age, likely due to underlying fibroids, unchanged. IMPRESSION: 1. No acute osseous abnormality. 2. Mild degenerative joint disease. 3. Prominent appearing uterus suggesting underlying fibroids, unchanged. Electronically signed by: Lore Ware MD (05/10/2021 11:49 AM) [facility]
== END 2021-05-10 12:05 | disposition home or self-care (01) ==
LOC: ER 10:02
DX: M79.652 Pain in left thigh (principal); M25.552 Pain in left hip; M19.90 Unspecified osteoarthritis, unspecified site; E11.9 Type 2 diabetes mellitus without complications; I10 Essential (primary) hypertension; I25.2 Old myocardial infarction; Z87.440 Personal history of urinary (tract) infections; Z88.8 Allergy status to other drugs, medicaments and biological substances
CPT/HCPCS: 73700; 96372; 99284; J2360